=== PATIENT | female | born 1995 | race Caucasian/White ===

== ENCOUNTER 2023-08-21 07:39 | Inpatient (IN) | payer BC, OTHER ==
[2023-08-21] MEDS ORDERED: fentaNYL 50 mcg/mL 1 mL Vial SLOW IVP PRN (07:51)
[2023-08-21] MEDS ORDERED: Diphenoxylate HCl/Atropine Tablet PO PRN ×2 (07:51)
[2023-08-21] MEDS ORDERED: Acetaminophen 500 MG TAB PO PRN (07:51)
[2023-08-21] MEDS ORDERED: Penicillin G Potassium 5 MILL.UNITS in Sodium Chloride 0.9% 100 ML IVPB SCH (07:51)
[2023-08-21] MEDS ORDERED: Promethazine HCl 25 MG/ML VIAL IM PRN ×2 (07:51→11:36)
[2023-08-21] MEDS ORDERED: Misoprostol 200 MCG TAB PR PRN (07:51)
[2023-08-21] MEDS ORDERED: Zolpidem Tartrate 5 MG TAB PO PRN ×2 (07:51→18:35)
[2023-08-21] MEDS ORDERED: Ondansetron PF 4 MG/2 ML Vial IVP PRN ×3 (07:51→16:04)
[2023-08-21] MEDS ORDERED: Carboprost 250 MCG/ML AMP IM PRN (07:51)
[2023-08-21] MEDS ORDERED: Lactated Ringer's 1,000 ML IV SCH (07:51)
[2023-08-21] MEDS ORDERED: HYDROcodone/Acetaminophen 5/325 mg Tablet PO PRN ×2 (07:51)
[2023-08-21] MEDS ORDERED: Docusate 100 MG CAP PO PRN (07:51)
[2023-08-21] MEDS ORDERED: hydrALAZINE 20 MG/ML VIAL SLOW IVP PRN ×2 (07:51→16:04)
[2023-08-21] MEDS ORDERED: Oxytocin 30 units/NS 500 ML 500 ML IV SCH ×4 (07:51→16:15)
[2023-08-21] MEDS ORDERED: Lidocaine 1% (PF) 30 ML VIAL SC PRN (07:51)
[2023-08-21] MEDS ORDERED: Ibuprofen 800 MG TAB PO PRN (07:51)
[2023-08-21] MEDS ORDERED: Penicillin G Potassium 5 MILL.UNITS VIAL ONE (07:58)
[2023-08-21] MEDS ORDERED: Oxytocin 30 units/NS 500 ML 500 ML ONE (08:31)
[2023-08-21 08:43] LABS: Hemoglobin 12.3 g/dL (12.0-15.5); Mean Corpuscular HGB CONC 34.2 g/dL (32.0-36.0); Mean Corpuscular Hemoglobin 28.5 pg (27.0-33.0); Mean Corpuscular Volume 83.5 fl (81.6-98.3); Mean Platelet Volume 10.6 fl (7.4-10.4); Platelet Count 292 10x3/uL (150-450); Red Blood Cell (RBC) Count 4.31 10x6/uL (3.90-5.03)
[2023-08-21 09:16] LABS: Syphilis Antibody Nonreactive (Nonreactive); Syphilis Antibody Index 0.05 S/CO (<1.00 Non-Reactive)
[2023-08-21 09:17] LABS: HBSAg Index 0.15 S/CO (0-0.99); HIV (1/2) Antibody/Antigen Non-Reactive (NonReactive); Hep B Surf Ag - L&D Non-Reactive S/CO (NonReactive)
[2023-08-21 09:33] VITALS: BMI 30.6
[2023-08-21] MEDS ORDERED: fentaNYL/Ropivacaine Epidural 100 ML ONE (10:37)
[2023-08-21] MEDS ORDERED: Acetaminophen 325 MG TAB PO PRN (11:36)
[2023-08-21] MEDS ORDERED: ePHEDrine Sulfate 50 MG/10 ML VIAL SLOW IVP PRN (11:36)
[2023-08-21] MEDS ORDERED: Naloxone HCl 0.4 mg/ml Vial IVP PRN ×2 (11:36)
[2023-08-21] MEDS ORDERED: Lactated Ringer's 500 ML IV PRN (11:36)
[2023-08-21] MEDS ORDERED: Moisturizing Cream (Eucerin) 113 GM JAR TOP PRN (11:36)
[2023-08-21] MEDS ORDERED: diphenhydrAMINE 50 MG/ML VIAL IVP PRN (11:36)
[2023-08-21] MEDS ORDERED: Communication Order-Pharmacy FS SCH (11:45)
[2023-08-21] MEDS ORDERED: fentaNYL 2 mcg/Ropivacaine 0.2% Epidural 100 ML CADD EPIDURAL SCH (11:45)
[2023-08-21] MEDS ORDERED: Penicillin G 2.5 MILL.units 2.5 MILL.UNITS in Premix Bag 1 BAG IVPB SCH (12:00)
[2023-08-21 12:36] LABS: SARS-CoV-2 NAA Rapid Test Not Detected (NotDetected)
[2023-08-21] MEDS ORDERED: Preparation H Ointment 28 GM TUBE PR PRN (16:04)
[2023-08-21] MEDS ORDERED: Benzocaine-Menthol 82.5 ML CAN TOP PRN (16:04)
[2023-08-21] MEDS ORDERED: Bisacodyl 10 MG SUPP PR PRN (16:04)
[2023-08-21] MEDS ORDERED: Boostrix 0.5 ML (Tdap) VIAL (>/=7 yrs of age) IM ONE (16:04)
[2023-08-21] MEDS ORDERED: Milk Of Magnesia 30 ML UDCUP PO PRN (16:04)
[2023-08-21] MEDS ORDERED: diphenhydrAMINE 25 MG CAP PO PRN (16:04)
[2023-08-21] MEDS ORDERED: Misoprostol 200 MCG TAB VAG PRN (16:04)
[2023-08-21] MEDS ORDERED: Lanolin Ointment 7 GM TUBE TOP PRN (16:04)
[2023-08-21] MEDS: Ferrous Sulfate 325 MG TAB PO SCH (18:45)
[2023-08-21] MEDS: Docusate 100 MG CAP PO SCH (20:13)
[2023-08-21] MEDS: Ibuprofen 800 MG TAB PO SCH (20:13)
[2023-08-22] MEDS: HYDROcodone/Acetaminophen 5/325 mg Tablet PO PRN ×4 (00:22→16:11)
[2023-08-22] MEDS: Ibuprofen 800 MG TAB PO SCH ×2 (04:00→12:05)
[2023-08-22 04:29] LABS: Hematocrit 30.9 % (34.9-44.5); Hemoglobin 10.3 g/dL (12.0-15.5); Mean Corpuscular HGB CONC 33.3 g/dL (32.0-36.0); Mean Corpuscular Hemoglobin 28.2 pg (27.0-33.0); Mean Corpuscular Volume 84.7 fl (81.6-98.3); Mean Platelet Volume 10.8 fl (7.4-10.4); Platelet Count 240 10x3/uL (150-450); RBC Distribution Width 12.1 % (11.5-14.5); Red Blood Cell (RBC) Count 3.65 10x6/uL (3.90-5.03); White Blood Cell (WBC) Count 11.4 10x3/uL (3.5-10.5)
[2023-08-22] MEDS: Ferrous Sulfate 325 MG TAB PO SCH ×2 (08:37→16:10)
[2023-08-22] MEDS: Docusate 100 MG CAP PO SCH (08:38)
[2023-08-22] MEDS ORDERED: Prenatal Vitamin 1 TAB PO SCH (09:00)
[2023-08-22 11:17] VITALS: BP 111/53; TEMP 98.6
== END 2023-08-22 17:30 | disposition home or self-care (01) | DRG 807 ==
LOC: CSHLD 07:39 → CSHPP 18:30
PROVIDERS: ADMIT Obstetrics & Gynecology; ATTEND Obstetrics & Gynecology
PROC: 10E0XZZ Delivery of Products of Conception, External Approach (ICD-10-PCS; principal; 2023-08-21)
PROC: 10907ZC Drainage of Amniotic Fluid, Therapeutic from Products of Conception, Via Natural or Artificial Opening (ICD-10-PCS; 2023-08-21)
DX: O99.284 Endocrine, nutritional and metabolic diseases complicating childbirth (principal); Z37.0 Single live birth; Z3A.39 39 weeks gestation of pregnancy; E03.9 Hypothyroidism, unspecified; Z79.890 Hormone replacement therapy; O99.824 Streptococcus B carrier state complicating childbirth; Z20.822 Contact with and (suspected) exposure to COVID-19
CPT/HCPCS: 36415; 51702; 85027; 86780; 86850; 86900; 86901; 87340; 87389; J2540; J2590; U0002